=== PATIENT | female | born 1985 ===

== ENCOUNTER 2017-06-25 05:14 | Emergency (ER) | payer MEDICAID ==
--- NOTE | 2017-06-25 05:50 | EDPHY ---
H & P Stated Complaint: AMS, ?OD Source: Patient, EMS Exam Limitations: Intoxication - Personal History LMP (Females 10-55): Unknown Current Tetanus/Diphtheria Vaccine: Unsure - Medical/Surgical History Other PMH: unobtainable - Social History Smoking Status: Unknown if ever smoked Time Seen by Provider: 06/25/17 05:18 HPI/ROS: HPI The patient presents with altered mental status. She is brought in by EMS from the care home lobby after being released at about midnight. She has been in the lobby all night and it was noted that she was very somnolent and unable to walk. She has bottles for topiramate 25 mg tabs, quantity 60, fill date is June 20. Abilify 10 mg quantity 30, filled date June 19. Both bottles are completely empty. The patient is unable to provide any meaningful history at this time. REVIEW OF SYSTEMS Constitutional: No fever, no chills. Eyes: No discharge. ENT: No sore throat. Cardiovascular: No chest pain, no palpitations. Respiratory: No cough, no shortness of breath. Gastrointestinal: No abdominal pain, no vomiting. Genitourinary: No hematuria. Musculoskeletal: No back pain. Skin: No rashes. Neurological: No headache. PMHx: Prior admission to [facility] Hx: Lives in hygiene with roommates, was recently arrested for substances PHYSICAL General Appearance: Tired appearing, slurring her words Eyes: Pupils equal and round no pallor or injection ENT, Mouth: Mucous membranes moist Respiratory: There are no retractions, lungs are clear to auscultation Cardiovascular: Regular rate and rhythm Gastrointestinal: Abdomen is soft and non-tender, no masses, bowel sounds normal Neurological: Tired, rouses to voice, oriented to person and place, moves all extremities Skin: Warm and dry, no rashes Musculoskeletal: Neck is supple non tender Extremities: symmetrical, full range of motion Psychiatric: Mumbling and sedate, oriented x2 (Queuzzi,Salima) Constitutional: Initial Vital Signs Temperature (C) 36.6 C 06/25/17 05:18 Heart Rate 85 06/25/17 05:18 Respiratory Rate 16 06/25/17 05:18 Blood Pressure 118/67 06/25/17 05:18 O2 Sat (%) 98 06/25/17 05:18 O2 Delivery Mode Room Air Allergies/Adverse Reactions: Unable to Assess Allergy (Unverified 06/25/17 05:22) Home Medications: Medication Instructions Recorded ARIPIPRAZOLE 06/25/17 TOPIRAMATE 06/25/17 Medical Decision Making - Diagnostics EKG Interpretation: EKG interpreted by me shows normal sinus rhythm normal interval and axis. QRS is normal there is no significant ST elevation or depression. No arrhythmia. The rate is 77 (Wm Cooper) EKG: Complete interpretation has been separately recorded in the [email or web address] archive. Summary impression: Normal sinus rhythm (Salima Vance) ED Course/Re-evaluation: Patient is seen several Times by Me. Re-evaluation at 10:35 a.m.. Patient is responsive and answers yes no but is quite sleepy. She had 1 episode of apparent fast heart rate that was transient. EKG was obtained. Please see the EKG interpretation by me Re-evaluation again at 1:40 p.m.. Patient has been ambulatory to the bathroom. She has eaten food. She really does not answer questions for me but appears otherwise stable. No complaints Re-evaluation 245 patient is stable. Cleared medically for mental health about (Wm Cooper) 15:55 I assumed care of this patient at shift change. She is medically cleared, mental health evaluation pending at this time. 17:45 Spoke with [facility] staff. They recommend inpatient care for this patient. 18:00 Staff state the supervising physician is not convinced the patient is medically cleared as she is not responding to questions during their evaluation. I explained the patient has been ambulatory and has eaten, and I offered to speak directly to the supervising physician regarding this patient. She is medically cleared based on our work-up today as detailed above. 18:29 Staff report that the psychiatrist, Dr. Canales], believes the patient's unresponsiveness is due to a delirious state as a result of her topiramate and Abilify overdose. Plan to consult with poison control. The patient arrived here 13 hours ago. Per HPI, the patient was discovered with two empty bottles, one for topiramate 25 mg tabs, #60, filled 06/20/17, and one for Abilify 10 mg #30, filled 06/19/17. 18:35 Consulted with Poison Control regarding this patient. Vitals within normal limits at this time. Expected time for med clearance is around 6 hours. As the patient arrived more than 13 hours ago and has been able to perform normal tasks without difficulty and has attempted to escape the emergency department, I suspect she may be choosing to have decreased responsiveness to questions. 18:[address] Aguilar. (Rolo Ramos) 2:30 a.m.- The patient has been accepted at [facility] by Dr. Mcdaniel. I have completed the EMTALA form. (Salima Vance) Differential Diagnosis: 31-year-old female, released from care home several hours ago, sitting in the care home lobby for about 5 hr and found to be altered with empty pill bottles of Abilify and Topamax on her. She does have a past psychiatric history, has been admitted to [facility]. On exam, her vital signs are normal, she is quite sedate and not answering questions appropriately. Otherwise her exam is nonfocal. Differential diagnosis includes medication overdose, suicide attempt, polysubstance abuse. Spoke with the Poison Control Center (case #[id number]), topiramate can cause drowsiness, hypotension, and occasionally seizures. The patient becomes symptomatic, she should receive benzodiazepines. Abilify can cause hypotension and tachycardia as well as sedation. Patient should be kept on clinical research monitor. I have placed on an M1 hold given her past psychiatric history and concern for drug overdose, intentional. At 7:00 a.m., case is signed out to Dr. Cooper pending patient's improvement in mental status and mental health evaluation. (Salima Vance) Care Turn Over: Care to Dr. Ramos at 3:55 p.m. (Wm Cooper) - Data Points Laboratory Results: Laboratory Results 06/25/17 06:27 06/25/17 06:27 Medications Given: Discontinued Medications Sodium Chloride (Ns) 1,000 mls @ 0 mls/hr IV ONCE ONE PRN Reason: Wide Open Stop: 06/25/17 10:25 Last Admin: 06/25/17 10:27 Dose: 1,000 mls Departure - Departure Disposition: Other Psych, Not [facility] Clinical Impression: Drug overdose Qualifiers: Encounter type: initial encounter Injury intent: undetermined intent Qualified Code(s): T50.904A - Poisoning by unspecified drugs, medicaments and biological substances, undetermined, initial encounter Altered mental status Qualifiers: Altered mental status type: somnolence Qualified Code(s): R40.0 - Somnolence Condition: Fair Instructions: [facility] Referrals: [facility],. [Clinic] - As per Instructions
--- NOTE | 2017-06-25 06:17 | CPEKG ---
Heart Rate: 68 RR Interval: 882 P-R Interval: 136 QRSD Interval: 96 QT Interval: 400 QTC Interval: 426 P [place]: 15 QRS [place]: 29 T Wave [place]: 19 EKG Severity - NORMAL ECG - EKG Impression: SINUS RHYTHM Electronically Signed By: Salima Vance 25-Jun-2017 06:30:48
[2017-06-25 06:34] LABS: PLATELET COUNT 258 10^3/uL (150-400)
--- NOTE | 2017-06-25 10:22 | CPEKG ---
Heart Rate: 77 RR Interval: 779 P-R Interval: 132 QRSD Interval: 90 QT Interval: 384 QTC Interval: 435 P [place]: 27 QRS [place]: 55 T Wave [place]: 57 EKG Severity - NORMAL ECG - EKG Impression: SINUS RHYTHM Electronically Signed By: Wm Cooper 25-Jun-2017 15:56:57
[2017-06-25] MEDS ORDERED: NS 1,000 ML IV ONE (10:24)
[2017-06-25 15:52] VITALS: TEMP 98.6; O2SAT 96
[2017-06-25 22:56] VITALS: BP 105/69; PULSE 85; RESP 16
== END 2017-06-26 02:54 ==
LOC: EDUNIT#
DX: T42.6X2A Poisoning by other antiepileptic and sedative-hypnotic drugs, intentional self-harm, initial encounter (principal); T43.592A Poisoning by other antipsychotics and neuroleptics, intentional self-harm, initial encounter; R40.0 Somnolence
CPT/HCPCS: 80305; G0480